=== PATIENT | male | born 1970 ===

== ENCOUNTER 2019-05-11 14:10 | Emergency (ER) | payer MEDICAID | END 2019-05-11 17:28 | disposition home or self-care (01) | LOC: ERS 14:10 | DX: M79.671 Pain in right foot (principal); M79.672 Pain in left foot; E78.5 Hyperlipidemia, unspecified; E78.00 Pure hypercholesterolemia, unspecified; F32.9 Major depressive disorder, single episode, unspecified; F41.9 Anxiety disorder, unspecified; F17.220 Nicotine dependence, chewing tobacco, uncomplicated; Z79.899 Other long term (current) drug therapy; Z86.711 Personal history of pulmonary embolism | CPT/HCPCS: 99281 ==